=== PATIENT | female | born 1985 | race African-American/Black ===

== ENCOUNTER 2016-07-04 07:31 | Inpatient (IN) | payer BC ==
[2016-07-04] MEDS: LACTATED RINGERS 1,000 ML IV SCH ×2 (08:25→22:47)
[2016-07-04] MEDS ORDERED: METHYLERGONOVINE 0.2 MG/ML 1 ML AMP IM PRN (08:26)
[2016-07-04] MEDS ORDERED: OXYTOCIN 10 UNIT/ML 1 ML VIAL IM PRN (08:26)
[2016-07-04] MEDS ORDERED: TERBUTALINE 1 MG/ML VIAL SQ PRN (08:26)
[2016-07-04] MEDS ORDERED: LIDOCAINE 1% (PF) 10 MG/ML (30 ML SDV) SQ PRN (08:26)
[2016-07-04] MEDS ORDERED: CARBOPROST TROMETHAMINE 250 MCG/ML 1 ML AMP IM PRN (08:26)
[2016-07-04 08:38] LABS: Basophils % (A) 0 %; CH 27.2; CHCM 33.1; Eosinophils # (A) 0.2 k/uL (0-0.7); Eosinophils % (A) 1 %; HCT 37.5 % (34.0-46.0); HDW 2.87; HGB 12.3 gm/dL (11.4-16.0); Luc # (Auto) 0.23; Luc % (Auto) 2; Lymphocytes # (A) 2.2 k/uL (1.0-4.8); Lymphocytes % (A) 19 %; MCH 27.2 pg (25.0-35.0); MCHC 32.9 g/dL (31.0-37.0); MCV 82.6 fL (80.0-100.0); Mean Platelet Volume 8.8; Monocytes # (A) 0.4 k/uL (0-1.0); Monocytes % (A) 4 %; Neutrophils # (A) 8.6 k/uL (1.3-7.7); Neutrophils % (A) 74 %; RBC 4.54 m/uL (3.80-5.40); RDW 13.3 % (11.5-15.5); WBC 11.5 k/uL (3.8-10.6); WBC (Perox) 13.11
--- NOTE | 2016-07-04 09:05 | P.HPOB ---
History of Present Illness H&P Date: 07/04/16 Chief Complaint: 37+ weeks, active labor The patient is a 31-year-old 5 para 3014 admitted at 37+ weeks as established by last menstrual period and confirmed by 23 week ultrasound. She is admitted in active labor with all signs reassuring. Her has been uncomplicated and group B strep status is negative. She did have him a delivery of a twin but this was followed by a successful vaginal after section. She has requested vaginal trial of labor today. She additionally requested the tubal ligation should section become necessary and signed consent to that effect in the office. Otherwise, tubal ligation will be performed around the time of the exam. Obstetrical history: 5 para 3014 with 1 term vaginal delivery followed by a delivery for twins. Her most recent delivery was a successful vaginal after section. Current statistics are listed in history present illness. EDC of 07/20/2016 was established by last menstrual period and confirmed by 23 week ultrasound. Laboratory workup demonstrates a blood type of O+ with a negative antibody screen. Rubella status is nonimmune. The remainder of her laboratory workup was within normal limits including thyroid studies. One hour Glucola was within normal limits and group B strep status is negative. Gynecologic history: Is unremarkable though she does have a history of chlamydia which was treated early in the and tested for cure. Review of Systems Review of systems is confined to history of present illness. Past Medical History Past Medical History: No Reported History History of Any Multi-Drug Resistant Organisms: None Reported Past Surgical History: Section Past Psychological History: No Psychological Hx Reported Smoking Status: Never smoker Past Alcohol Use History: None Reported Past Drug Use History: None Reported Medications and Allergies Home Medications Medication Instructions Recorded Confirmed Type No Known Home Medications [No 07/04/16 07/04/16 History Known Home Medications] Allergies Allergy/AdvReac Type Severity Reaction Status Date / Time Penicillins Allergy Rash/Hives Verified 07/04/16 07:48 Exam - Vital Signs Vital signs: Intake and Output 07/03/16 07/04/16 07/04/16 22:59 06:59 14:59 Other: Weight 84.822 kg Patient Weight 07/05/16 06:59 Weight 84.822 kg In general, this is a well-developed, well-nourished female in discomfort as she is in active labor. Her heart has a regular rhythm and rate without murmur. Her lungs clear to auscultation bilaterally in all gerber. Her abdomen is gravid, nondistended, has normal active bowel sounds, is soft, nontender, and without any palpable masses aside from uterine fundus. Her extremities without any cyanosis, clubbing, or edema and are nontender to palpation bilaterally. Digital cervical examination on straights her cervix to be 8 cm dilated, 90% effaced, the vertex in presentation at -1-2 station. Artificial rupture of membranes is carried out entered and clear fluid. Results Result Diagrams: 07/04/16 08:25 Abnormal Lab Results - Last 24 Hours (Table) 07/04/16 Range/Units 08:25 WBC 11.5 H (3.8-10.6) k/uL Neutrophils # 8.6 H (1.3-7.7) k/uL Assessment and Plan (1) Previous section Status: Acute (2) Active labor at term Status: Acute Plan: The patient is admitted for active management of labor. She has successfully delivered vaginally since her section I would anticipate the same for this delivery. She will continue to have close maternal and surveillance and expectant management will be practiced. She has passed the time when an epidural is an option for her. She may still revealed to receive Stadol if her labor does not progressed quickly which is what I anticipate.
[2016-07-04] MEDS ORDERED: Acetaminophen-Codeine 300-30mg TAB PO PRN ×2 (09:40)
[2016-07-04] MEDS ORDERED: SIMETHICONE 80 MG CHEWABLE PO PRN (09:40)
[2016-07-04] MEDS ORDERED: diphenhydrAMINE 50 MG CAP PO PRN (09:40)
[2016-07-04] MEDS ORDERED: diphenhydrAMINE 25 MG CAP PO PRN (09:40)
[2016-07-04] MEDS ORDERED: HYDROCORTISONE 2.5% RECTAL CREAM 30 GM TUBE RECTAL PRN (09:40)
[2016-07-04] MEDS ORDERED: diphenhydrAMINE 50 MG/ML 1 ML VIAL IVP PRN ×2 (09:40)
[2016-07-04] MEDS ORDERED: MEASLES-MUMPS-RUBELLA VACC/PF 12,500 UNIT/0.5 ML VIAL SQ ONE (09:40)
[2016-07-04] MEDS ORDERED: IBUPROFEN 600 MG TAB PO PRN (09:40)
[2016-07-04] MEDS ORDERED: ACETAMINOPHEN TAB 325 MG TAB PO PRN (09:40)
[2016-07-04] MEDS ORDERED: ZOLPIDEM 5 MG TAB PO PRN (09:40)
[2016-07-04] MEDS ORDERED: BENZOCAINE/MENTHOL SPRAY 1 GM/SPRAY AEROSOL TOPICAL PRN (09:40)
[2016-07-04] MEDS ORDERED: WITCH HAZEL 1 EACH MED..PAD TOPICAL PRN (09:40)
--- NOTE | 2016-07-04 09:45 | P.PROBDLV ---
Vaginal Delivery Note - . Vaginal Delivery Note: The patient is a 31-year-old 5 para 3014 admitted at 37-5/7 weeks by good dating parameters. She carries a history of previous section for twins followed by successful vaginal after section and has requested the same. On labor and delivery, all signs reassuring. Her has been otherwise uncomplicated and group B strep status is negative. She was admitted at 4 synovators of dilation and progressed rapidly to 8 cm at which time artificial rupture of membranes is carried out showing what was thought to be clear fluid. She progressed fairly quickly thereafter to complete and pushed to a normal spontaneous vaginal delivery over the course of 2-3 contractions, a successful vaginal after section, of a viable 6 lbs. 2 oz. baby boy with Apgars of 8 at 1 minute and 9 at 5 minutes delivered in the direct occiput anterior position. There was relatively tight nuchal cord times to which was reduced following delivery of the infant. There was noted to be a fair amount of meconium-stained fluid following the baby. The placenta was delivered spontaneously, intact, and grossly normal with a grossly normal three-vessel cord inserted approximately 4 cm from the margin of the placental disc. There were no lacerations of the perineum, vagina, or cervix. Estimated blood loss for the entire case was approximately 100 mL. There are no complications. All sponge, instrument, and needle counts were correct. Both mother and are resting comfortably in recovery.
[2016-07-04 10:01] VITALS: BMI 32.1
[2016-07-04] MEDS ORDERED: OXYTOCIN 30 UNITS/500 ML NS 30 UNIT in SALINE 1 500ML.BAG IV SCH (10:15)
[2016-07-04] MEDS ORDERED: ACETAMINOPHEN ORAL SUSP (PEDS) 3,840 MG/120 ML BOTTLE PO PRN (13:00)
[2016-07-04] MEDS: IBUPROFEN ORAL SUSP 100 MG/5 ML CUP PO PRN ×2 (13:04→19:48)
[2016-07-04] MEDS: SENNOSIDES-DOCUSATE SODIUM 1 EACH TAB PO SCH (22:38)
[2016-07-05] MEDS: IBUPROFEN ORAL SUSP 100 MG/5 ML CUP PO PRN (07:59)
[2016-07-05 08:32] VITALS: BP 115/67; PULSE 70; RESP 18; TEMP 98.5
--- NOTE | 2016-07-05 08:34 | P.DS ---
Providers Date of admission: 07/04/16 08:06 Expected date of discharge: 07/05/16 Attending physician: Iglesia Kerns Primary care physician: Stated None - Discharge Diagnosis(es) (1) Previous section Current Visit: Yes Status: Acute (2) Active labor at term Current Visit: Yes Status: Acute (3) Vaginal after section Current Visit: Yes Status: Acute Hospital Course: The patient is a 31-year-old 5 para 3014 admitted at 37+ weeks by good dating parameters. She is admitted in active labor with all signs reassuring. Her was uncomplicated and group B strep status was negative. She did have a previous section for twins followed by successful vaginal and requested the vaginal trial for this . On labor and delivery, she made rapid progress through the active phase of labor to complete and pushed quickly to a normal spontaneous vaginal delivery, successful , of a viable 6 lbs. 2 oz. baby boy with Apgars of 8 at 1 minute and 9 at 5 minutes. Her course was unremarkable vital signs remaining stable and her temperature was afebrile throughout. She was deemed stable for discharge by day #1 and was discharged home to follow-up in the office in 6 weeks ' time routinely. Discharge instructions included calling for any significantly increased bleeding or foul-smelling lochia, significantly increased fever abdominal pain, perineal complaints, breast complaints, or anything else that concerned her. She is additionally instructed to have nothing in the vagina for at least 6 weeks time to include intercourse. She understood her instructions and agrees to follow up as noted above. Discharge medications included [id number] analgesic pain medications as needed. Maternal blood type is O+ and rubella status is nonimmune. She therefore was to receive the [facility] prior to discharge. She has signed consent for tubal ligation in the office and will likely be set up for interval laparoscopic tubal ligation at around the 6 week visit. Procedures: #1. Artificial rupture of membranes #2. Normal spontaneous vaginal delivery Patient Condition at Discharge: Good Plan - Discharge Summary Discharge Medication List No Known Home Medications [No Known Home Medications] 07/04/16 [History] Follow up Appointment(s)/Referral(s): Iglesia Kerns MD [STAFF PHYSICIAN] - 6 Weeks Discharge Disposition: HOME SELF-CARE
[2016-07-05] MEDS: SENNOSIDES-DOCUSATE SODIUM 1 EACH TAB PO SCH (08:54)
== END 2016-07-05 12:50 | disposition home or self-care (01) | DRG 775 ==
LOC: FBPOP 07:31 → 4FBP 08:06
PROVIDERS: ADMIT Obstetrics & Gynecology; ATTEND Obstetrics & Gynecology
PROC: 10E0XZZ Delivery of Products of Conception, External Approach (ICD-10-PCS; principal; 2016-07-04)
PROC: 3E0134Z Introduction of Serum, Toxoid and Vaccine into Subcutaneous Tissue, Percutaneous Approach (ICD-10-PCS; 2016-07-04)
DX: O34.211 Maternal care for low transverse scar from previous cesarean delivery (principal); O69.1XX0 Labor and delivery complicated by cord around neck, with compression, not applicable or unspecified; Z37.0 Single live birth; Z3A.37 37 weeks gestation of pregnancy; Z23 Encounter for immunization
CPT/HCPCS: 59025; 85025; 86850; 86900; 86901; 88307; 99213